=== PATIENT | male | born 1955 | race Caucasian/White ===

== ENCOUNTER 2024-03-29 13:14 | Emergency (ER) | payer MEDICARE, MEDICAID ==
[~2024-03-29] VITALS: Ht 154.9 cm; Wt 62.6 kg
[2024-03-29 13:25] VITALS: O2SAT 100
[2024-03-29] MEDS ORDERED: ZOLP5TAB2 MT (15:38)
[2024-03-29 16:03] VITALS: BP 148/80; PULSE 80; RESP 16; TEMP 36.78072; O2SAT 100
== END 2024-03-29 16:08 | disposition home or self-care (01) ==
LOC: ER 13:14
DX: Z76.0 Encounter for issue of repeat prescription (principal); I10 Essential (primary) hypertension; F19.90 Other psychoactive substance use, unspecified, uncomplicated; Z98.890 Other specified postprocedural states
CPT/HCPCS: 99283